=== PATIENT | male | born 1995 | race Caucasian/White ===

== ENCOUNTER → 2021-05-09 08:26 | Outpatient (CLI) | payer OTHER, MEDICAID, SELFPAY ==
[2021-05-09 22:04] LABS: COVID19 - ORCAS (NP or Nasal) Negative (Negative)
== END ==
PROVIDERS: Visit Provider Physician Assistant Medical
DX: U07.1 COVID-19 (principal)
CPT/HCPCS: C9803; U0003

== ENCOUNTER 2025-06-12 08:50 | Day surgery (SDC) | payer BC, SELFPAY ==
[2025-06-07 13:33] VITALS: BMI 25.1
[2025-06-12 09:36] VITALS: BP 141/80; PULSE 87; RESP 16; TEMP 36.9; O2SAT 98
[2025-06-12] MEDS: ACETAMINOPHEN 325 MG TABLET 975 MG PO (09:44)
[2025-06-12] MEDS: LACTATED RINGERS 1,000 ML 42 ML IV (09:45)
--- NOTE | 2025-06-12 11:00 | PM.PREOP ---
Pre-operative Note COVID-19 COVID-19 status: Not tested Interval Note History & Physical reviewed/Exam performed by Physician: Yes Changes to H&P: No
[2025-06-12] MEDS: BACITRACIN 28 GM OINT 1 APPLIC TOP (12:29)
--- NOTE | 2025-06-12 12:36 | P.OP_ITS ---
Operative Date/Time/Diagnoses Date of procedure: 06/12/25 Time of procedure: 11:30 Pre-op diagnosis: Phimosis Post-op diagnosis: same Procedure & Clinicians Procedure: Circumcision Same procedure(s) as scheduled: Yes Indications: 30 y/o M noted to have phimosis and inability to visualize his entire glans penis. Discussed treatment options to include topical betamethasone cream twice daily for 6-8 weeks vs a formal circumcision. At this time, he would prefer to move forward with a circumcision. Discussed risks of the procedure to include but not limited to pain, bleeding, infection, injury to glans penis/urethra/corporal bodies, removal of too much or too little foreskin, poor cosmetic result, wound dehiscence, decreased penile sensation, erectile dysfunction. Surgeon: Phillip Jauregui Assisted?: No Anesthesia Type: General Operative Notes Findings: Phimosis Closure Type: primary Specimen(s): none sent Applied: none Estimated Blood Loss (mL): 5 Procedure in detail: Patient was identified in the preoperative holding area and consent confirmed.? He was then brought to the operating room and placed supine on the operating room table where general anesthesia was induced.? All bony prominences were then properly padded and he was prepped and draped in the standard sterile fashion.? A surgical timeout was conducted and all members of the operating team were in agreement. Two circumferential incisions were marked on the penis using a marking pen in order to perform a circumcision.? They were both incised using a 15 blade.? Four clamps were then utilized to elevate the prepuce away from the penile shaft and the foreskin was then removed using a combination of tenotomy scissors and bovie electrocautery.? Hemostasis was then evaluated and all active bleeding was controlled using electrocautery.? A 3-0 Chromic U-stitch was then utilized to reapproximate the skin edges in the ventral midline.? A simple interrupted 3-0 Chromic stitch was utilized to reapproximate the skin edges in the dorsal midline.? The rest of the skin edges were brought together using 3-0 Chromic in a simple interrupted fashion (more than 20 stitches were thrown in total).? Attention was then turned towards the frenulum which was reapproximated using 4- 0 Chromic in a running fashion.? The penis was then re-evaluated for hemostasis, which was noted to be excellent at case end.? A penile block was then performed using a total of 20cc of 1:1 mixture of 1% Lidocaine plain and 0.25% Marcaine plain.? The wound was then dressed with Xeroform gauze and Coban.? Anesthesia was reversed, he was extubated in the OR and transferred to the PACU in stable condition for recovery. Complications: none Post-operative Condition: stable Disposition: PACU Plan for aftercare: Discharge home from PACU. Return to Urology clinic in 3 months for a wound check.
[2025-06-12 12:40] VITALS: BP 108/61; PULSE 66; RESP 16; TEMP 36.3; O2SAT 95
[2025-06-12 12:45] VITALS: BP 104/58; PULSE 67; RESP 11; TEMP 36.3; O2SAT 95
[2025-06-12 13:05] VITALS: BP 130/80; PULSE 85; RESP 15; TEMP 36.3; O2SAT 97
--- NOTE | 2025-06-15 11:32 | SUR.OPER ---
Supine on padded OR bed, head on pillow, arms secured on padded arm boards at <90 degrees abduction, legs uncrossed, safety belt at thigh, tape over blanket over lower legs.
== END 2025-06-12 13:13 | disposition home or self-care (01) ==
PROVIDERS: PCP Family Medicine; Referring Provider Urology; Visit Provider Urology
PROC: (CPT 54161; principal; 2025-06-12 10:45)
DX: N47.1 Phimosis (principal); N47.5 Adhesions of prepuce and glans penis
CPT/HCPCS: 54161; J0689; J1100; J1885; J2405; J2704; J3010; J7120